=== PATIENT | male | born 1980 | race Caucasian/White ===

== ENCOUNTER → 2017-04-02 | Outpatient (CLI) | payer BC ==
--- NOTE | 2017-04-02 20:06 | DRAGON STRESS TEST REPORT ---
EXERCISE TREADMILL TEST. DATE OF PROCEDURE: April 02, 2017 INDICATION: Patient with unspecified chest pain. Coronary risk factors: Dyslipidemia and family history of heart disease Resting EKG: Sinus rhythm, no baseline ST segment changes. Stress EKG: No significant changes noted with with exercise treadmill. Reason for termination: Dyspnea and fatigue. PROCEDURE REPORT: Baseline heart rate: 86 beats per minute with blood pressure of 115/90. Patient had no significant complaints at baseline. Patient was exercised on a standard Wei protocol. Patient exercised for total of 10 minutes and 12 seconds. Exercise was stopped because of fatigue and shortness of breath. Patient denied any chest arm or neck discomfort during the exercise, at peak exercise or in recovery. If automatic blood pressure recorded and if felt not accurate manual blood pressure then were recorded at appropriate intervals. Peak heart rate: 166 bpm, 90% of predicted maximum. Peak blood pressure: 174/62 mmHg. Double product: 26.1 kcal Exercise EKG: Showed some baseline artifact during exercise but no significant ST segment changes noted. CONCLUSIONS: Normal EKG and hemodynamic response to exercise. Good exercise tolerance. Negative EKG changes with exercise. Clinically negative treadmill stress test at adequate double product. RECOMMENDATIONS: Aggressive risk factor modification, medical therapy. Consider cardiology consultation if clinically indicated. Further evaluation may be considered especially if symptoms recurrence. Zahra Carson M.D., [employer] instrument maker, Board certified in cardiovascular diseases, Nuclear cardiology, Echocardiography Cardiac CT and cardiac MRI Ph. [phone] Ph. [phone] [facility]
== END ==
LOC: SP 09:02
PROVIDERS: ATTEND Family Medicine
DX: R07.9 Chest pain, unspecified (principal); E78.5 Hyperlipidemia, unspecified; Z82.49 Family history of ischemic heart disease and other diseases of the circulatory system
CPT/HCPCS: 93017